=== PATIENT | female | born 1980 | race Caucasian/White ===

== ENCOUNTER 2025-06-24 16:26 | Emergency (ER) | payer MEDICAID ==
[~2025-06-24] VITALS: Ht 170.2 cm; Wt 68.2 kg
[~2025-06-24 16:26] MED LIST: BUTA-245 PO
[2025-06-24 16:28] VITALS: BP 141/82; PULSE 84; RESP 16; TEMP 96.8; O2SAT 99
--- NOTE | 2025-06-24 17:02 | RADIOLOGY REPORT ---
CLINICAL INFORMATION: LEFT FOOT PAIN. TECHNIQUE: 3 views of the left foot were obtained. COMPARISON: None FINDINGS: No acute fracture or dislocation. Moderate joint space narrowing of the 1st MTP joint with associated subchondral sclerosis and marginal osteophytes. Mild bunionette deformity of the 5th metatarsal with associated mild varus angulation at the 5th MTP joint. Small plantar calcaneal spur. Adjac ent soft tissues are unremarkable. IMPRESSION: 1. No evidence of acute bony abnormality. 2. Nonacute findings as described above.
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
== END 2025-06-24 18:02 | disposition home or self-care (01) ==
LOC: ER 16:27
DX: S93.602A Unspecified sprain of left foot, initial encounter (principal); Z88.5 Allergy status to narcotic agent; Y09 Assault by unspecified means; Y93.89 Activity, other specified; Y92.89 Other specified places as the place of occurrence of the external cause; Y99.8 Other external cause status
CPT/HCPCS: 73630; 99283